=== PATIENT | female | born 1945 | race Two or more races ===

== ENCOUNTER 2024-02-23 07:08 | Day surgery (SDC) | payer OTHER ==
[2024-02-23] MEDS ORDERED: ENALAPRILAT DIHYDRATE 2.5 MG/2 ML VIAL IV ONE (12:45)
[2024-02-23] MEDS ORDERED: fentaNYL CITRATE 50 MCG/ML AMPUL IV ONE (12:45)
[2024-02-23] MEDS ORDERED: DIPHENHYDRAMINE HCL 50 MG/ML VIAL 1ML IV ONE (12:45)
[2024-02-23] MEDS ORDERED: MIDAZOLAM HCL 2 MG/2 ML VIAL IV ONE (12:45)
== END 2024-02-23 15:30 | disposition home or self-care (01) ==
LOC: AMB-ENDOS 07:08
PROVIDERS: ATTEND Surgery
DX: K57.30 Diverticulosis of large intestine without perforation or abscess without bleeding (principal); R93.5 Abnormal findings on diagnostic imaging of other abdominal regions, including retroperitoneum; K64.8 Other hemorrhoids